=== PATIENT | male | born 1980 | race Two or more races ===

== ENCOUNTER 2025-04-26 18:33 | Emergency (ER) | payer MEDICARE, MEDICAID, SELFPAY ==
[2025-04-26 20:10] VITALS: BP 128/75; PULSE 76; RESP 18; TEMP 36.6; O2SAT 99
--- NOTE | 2025-04-26 20:26 | PD.EDFALL ---
ED Fall Injury RME/HPI General Chief Complaint: Fall Stated Complaint: Fall today, left shoulder, left elbow, right knee Time Seen by Provider: 04/26/25 20:26 Source: patient Arrival date/time: 04/26/25 18:33 Limitations: no limitations RME / HPI complaint: fall (Slipped on a floor at [employer] which had liquid on it) Onset (ago): day(s) (Earlier today) Fall from: standing Place fall occurred: other ([employer]) Loss of consciousness: none Location of injury - extremities: Left: shoulder and elbow and Right: knee Severity: moderate Severity scale (1-10): 5 Quality: dull Associated symptoms (after fall): denies Related Data Previous Rx's ?Medication ?Instructions ?Recorded Indomethacin * (INDOCIN *) 75 mg PO BID ##30 01/04/17 ibuprofen 800 mg tablet 800 mg PO TID PRN pain #30 tabs 09/08/22 methocarbamol 750 mg tablet 750 mg PO TID PRN pain #30 tabs 12/02/23 naproxen 500 mg tablet 500 mg PO BID PRN pain #30 tabs 12/02/23 cyclobenzaprine 10 mg tablet 10 mg PO TID #20 tabs 04/26/25 ibuprofen 800 mg tablet 800 mg PO TID PRN pain #30 tabs 04/26/25 Allergies Allergy/AdvReac Type Severity Reaction Status Date / Time NKA* Allergy Uncoded 04/26/25 18:36 Past Medical History Past Medical History Comments PMH COMMENT: No apparent significant past medical history ED Exam Narrative Physical exam: Left shoulder is tender to palpation posterior aspect just above the scapula. Patient retains full range of motion of the upper extremities. The upper extremities are symmetrical when compared to each other. There is no apparent neurofocal deficit. Patient also retains full range of motion at the C-spine. And there is no apparent neurofocal deficit present here. Patient is also able to flex the right knee to endrange as well as extension. Patient ambulates without assistance. Neurovascular is intact. General Limitations: Present no limitations Head Head exam: Present atraumatic and normocephalic Eye Eye exam: Present normal appearance ENT ENT exam: Present normal exam Neck Neck exam: Present normal inspection and full ROM Chest Chest inspection: Present normal inspection Extremities Exam Extremities exam: Present normal inspection, full ROM and tenderness (Posterior aspect of the left shoulder. Generalized pain to the right lower extremity at the thigh) Back Exam Back exam: Present normal inspection and full ROM Neurological Exam Neurological exam: Present alert and oriented X3 Psychiatric Psychiatric exam: Present normal affect Skin Skin exam: Present warm Course Course Course Narrative: Patient is requesting ibuprofen 800 mg for pain relief. Patient refuses or does not want x-rays of the left upper extremity at the shoulder and he does not want the right knee to be x-rayed. Quality Measures none (na) Orders NA Vital Signs Vital signs: Vital Signs Temperature 97.9 F 04/26/25 20:10 Pulse Rate 76 04/26/25 20:10 Respiratory Rate 18 04/26/25 20:10 Blood Pressure 128/75 04/26/25 20:10 Pulse Oximetry (%) 99 04/26/25 20:10 Oxygen Delivery Method Room Air 04/26/25 20:10 Pulse ox room air 99% Fall MDM Narrative MDM Narrative:: Patient will be discharged with a prescription for ibuprofen 800 mg as well as Flexeril. He will be discharged with instructions to follow-up with primary care physician within 1 week. Patient data External records reviewed:: Other (specify) (NA) Clinical information provided by:: patient Social determinants that could affect healthcare access:: none Patient has the following chronic illnesses:: NA How is presenting disease/condition affected by chronic disease/condition?: no chronic disease Evaluation data The following diagnostics were reviewed and interpreted by me:: other (specify) (NA) Lab and/or radiology exams considered but not ordered:: NA Interpretation Summary: NA Medications / Prescriptions Medications or Prescriptions considered but not ordered:: NA Medication administrations:: NA Consultations Consultation(s) initiated? (list below): No Diagnosis Fall Differential Diagnosis: dislocation of shoulder region, fracture of wrist, compression fracture and concussion with loss of consciousness Most likely diagnosis given after review of the tests above:: NA Admission Indicated Admission indicated?: not indicated Explain why admission is indicated or not indicated:: NA Admission Request Was there a request for admission?: No Disposition Plan Disposition Plan: Discharge Discharge Attestation Discharge Attestation: The patient and all family members were given an opportunity to ask questions and understood the discharge instructions. Discharge instructions specifically effects, indications for sooner follow up or return to the emergency department, and the expected course of current diagnosis. Patient condition: Stable Discharge Plan Plan Patient Disposition: HOME (Self Care) Discharge Disposition comment: Discharge no apparent distress Patient condition on transfer: Stable Prescriptions/Referrals Prescriptions/Med Rec: New cyclobenzaprine 10 mg tablet 10 mg PO TID Qty: 20 0RF ibuprofen 800 mg tablet 800 mg PO TID PRN (Reason: pain) Qty: 30 0RF No Action Indomethacin * (INDOCIN *) 75 MG CAPSULE.SA 75 mg PO BID Qty: 30 0RF ibuprofen 800 mg tablet 800 mg PO TID PRN (Reason: pain) Qty: 30 0RF methocarbamol 750 mg tablet 750 mg PO TID PRN (Reason: pain) Qty: 30 0RF naproxen 500 mg tablet 500 mg PO BID PRN (Reason: pain) Qty: 30 0RF Problem List Clinical Impression: Contusion of left shoulder, Contusion of knee, left Patient/Caregiver Discharge Instructions Discharge Activity: activity as tolerated Education Materials: Bone Contusion Print Language: Bruneian Stand Alone Forms: Zayda Award Info., Patient Portal Info Letter PA/MILLINER HELPER Supervising Physician PA/MILLINER HELPER Supervising Physician: AUDREY
== END 2025-04-26 22:45 | disposition home or self-care (01) ==
LOC: SERX 21:00
PROVIDERS: Emergency Provider Emergency Medicine
DX: S40.012A Contusion of left shoulder, initial encounter (principal); S80.02XA Contusion of left knee, initial encounter; S59.902A Unspecified injury of left elbow, initial encounter; W01.0XXA Fall on same level from slipping, tripping and stumbling without subsequent striking against object, initial encounter; Y92.512 Supermarket, store or market as the place of occurrence of the external cause
CPT/HCPCS: 99281

== ENCOUNTER 2025-05-02 21:25 | Emergency (ER) | payer MEDICARE, MEDICAID, SELFPAY ==
[2025-05-02 21:27] VITALS: BMI 29.1
[2025-05-02 22:00] VITALS: BP 139/82; PULSE 79; RESP 18; TEMP 36.8; O2SAT 98
--- NOTE | 2025-05-02 22:10 | XR_ITS ---
EXAMINATION: Thoracic spine 3 views TECHNIQUE: AP lateral: Lateral upper dorsal spine 3 views INDICATIONS: Patient fell last week with injury to the back, back pain. FINDINGS: No acute thoracic fracture or visible Mild diffuse thoracic disc narrowing No cortical bone destruction IMPRESSION: No acute thoracic fracture noted
--- NOTE | 2025-05-02 22:10 | EDNOTE_ITS ---
ED Back Injury Pain RME/HPI General Chief Complaint: Back Pain/Injury Stated Complaint: UPPER BACK PAIN Time Seen by Provider: 05/02/25 21:44 Source: patient, RN notes reviewed and old records reviewed Arrival date/time: 05/02/25 21:25 Mode of arrival: ambulatory Limitations: no limitations RME / HPI RME / HPI Narrative: 44yom presents to ED for back pain s/p injury 6 days ago. Patient slipped on some water and fell backwards onto his back. He was evaluated at time of injury but no imaging was completed. Patient now requesting xrays. No sob, cp, n/v, LE weakness, numbness/tingling or bowel/bladder incontinence reported. Patient has taken ibuprofen and flexeril with mild relief. Related Data Previous Rx's ?Medication ?Instructions ?Recorded Indomethacin * (INDOCIN *) 75 mg PO BID ##30 01/04/17 ibuprofen 800 mg tablet 800 mg PO TID PRN pain #30 t abs 09/08/22 methocarbamol 750 mg tablet 750 mg PO TID PRN pain #30 tabs 12/02/23 naproxen 500 mg tablet 500 mg PO BID PRN pain #30 t abs 12/02/23 cyclobenzaprine 10 mg tablet 10 mg PO TID #20 tabs 03/11 ibuprofen 800 mg tablet 800 mg PO TID PRN pain #30 t abs 04/26/25 Allergies Allergy/AdvReac Type Severity Reaction Status Date / Time No Known Allergies Allergy Verified 05/02/25 21:26 Review of Systems Review of Systems Systems Reviewed: All systems reviewed, normal except as documented Musculoskeletal Musculoskeletal: Reports back pain, Denies limited range of motion, Denies numbness and Denies tingling Neurologic Neurologic: Denies localized weakness, Denies numbness and Denies tingling Past Medical History Surgical History SURGICAL: Positive of Back Surgery Social History SMOKING STATUS: Never smoker SUBSTANCE USE: does not use ALCOHOL: Never Past Medical History Comments PMH COMMENT: denies pmhx ED Exam General Limitations: Present no limitations General appearance: Present alert and in no apparent distress Head Head exam: Present atraumatic and normocephalic Eye Eye exam: Present normal appearance, PERRL and EOMI ENT ENT exam: Present normal exam and mucous membranes moist Neck Neck exam: Present normal inspection and full ROM; Absent tenderness Chest Chest inspection: Present normal inspection and symmetric chest wall rise Respiratory Respiratory exam: Present normal lung sounds bilaterally; Absent respiratory distress Cardiovascular Cardiovascular exam: Present regular rate and normal rhythm Extremities Exam Extremities exam: Present normal inspection and full ROM; Absent tenderness Back Exam Back exam: Present full ROM; Absent muscle spasm, paraspinal tenderness or vertebral tenderness Neurological Exam Neurological exam: Present alert, oriented X3 and normal gait; Absent motor sensory deficit (No saddle anesthesia) Psychiatric Psychiatric exam: Present normal affect and normal mood Skin Skin exam: Present warm, dry, intact and normal color Course Quality Measures none Orders Category Date Time Status XR cervical spine 2-3V Stat Exams 05/02/25 22:10 Completed XR thoracic spine 3V Stat Exams 05/02/25 22:10 Completed Vital Signs Vital signs: Vital Signs Temperature 98.2 F 05/02/25 22:00 Pulse Rate 79 05/02/25 22:00 Respiratory Rate 18 05/02/25 22:00 Blood Pressure 139/82 H 05/02/25 22:00 Pulse Oximetry (%) 98 05/02/25 22:00 Oxygen Delivery Method Room Air 05/02/25 22:00 Back Pain / Injury MDM Narrative MDM Narrative:: 44yom presents to ED for back pain s/p injury 6 days ago. Patient slipped on some water and fell backwards onto his back. He was evaluated at time of injury but no imaging was completed. Patient now requesting xrays. No sob, cp, n/v, LE weakness, numbness/tingling or bowel/bladder incontinence reported. Patient has taken ibuprofen and flexeril with mild relief. X-rays negative. Patient is neurologically intact, able to ambulate without difficulty. Encouraged rest, Motrin/Tylenol, muscle relaxer, ice/heat application prn. Stable for discharge, RTED precautions given. Patient data External records reviewed:: [facility] previous records (04/26/25 ED visit for left knee contusion) Clinical information provided by:: patient Social determinants that could affect healthcare access:: none Patient has the following chronic illnesses:: None How is presenting disease/condition affected by chronic disease/condition?: no chronic disease Evaluation data The following diagnostics were reviewed and interpreted by me:: radiology exam(s) Lab and/or radiology exams considered but not ordered:: None Interpretation Summary: Thoracic x-rays: No fracture per my read Medications / Prescriptions Medications or Prescriptions considered but not ordered:: Ibuprofen: patient took at home Medication administrations:: na Consultations Consultation(s) initiated? (list below): No Diagnosis Differential diagnosis back pain/injury: other (Fracture, sprain, strain, MSK pain) Most likely diagnosis given after review of the tests above:: Back pain, fall Admission Indicated Admission indicated?: not indicated Admission Request Was there a request for admission?: No Disposition Plan Disposition Plan: Discharge Discharge Attestation Discharge Attestation: The patient and all family members were given an opportunity to ask questions and understood the discharge instructions. Discharge instructions specifically effects, indications for sooner follow up or return to the emergency department, and the expected course of current diagnosis. Patient condition: Stable Discharge Plan Plan Patient Disposition: HOME (Self Care) Patient condition on transfer: Stable Prescriptions/Referrals Prescriptions/Med Rec: No Action Indomethacin * (INDOCIN *) 75 MG CAPSULE.SA 75 mg PO BID Qty: 30 0RF ibuprofen 800 mg tablet 800 mg PO TID PRN (Reason: pain) Qty: 30 0RF methocarbamol 750 mg tablet 750 mg PO TID PRN (Reason: pain) Qty: 30 0RF naproxen 500 mg tablet 500 mg PO BID PRN (Reason: pain) Qty: 30 0RF cyclobenzaprine 10 mg tablet 10 mg PO TID Qty: 20 0RF ibuprofen 800 mg tablet 800 mg PO TID PRN (Reason: pain) Qty: 30 0RF Referrals: Gregorio Singleton MD [Primary Care Provider, Family Practice] - In 1 week Problem List Clinical Impression: Back pain, Fall Patient/Caregiver Discharge Instructions Education Materials: ED Back Pain (Acute or Chronic) Print Language: Luxembourgish Stand Alone Forms: Zayda Award Info., Patient Portal Info Letter PA/DATA ANALYST REPORT WRITER Supervising Physician PA/DATA ANALYST REPORT WRITER Supervising Physician: Ivania
--- NOTE | 2025-05-02 22:10 | XR_ITS ---
EXAMINATION: Cervical spine 3 views TECHNIQUE: AP, lateral, coned AP odontoid cervical spine 3 views Date and time: May 02, 2025, 10:24 p.m. INDICATIONS: Patient fell 1 week ago with injury to neck, neck pain. FINDINGS: Satisfactory alignment cervical vertebral bodies. No cervical fracture. Intact odontoid IMPRESSION: No acute cervical fracture
== END 2025-05-02 23:17 | disposition home or self-care (01) ==
PROVIDERS: Emergency Provider Emergency Medicine; PCP Family Medicine
DX: S29.9XXA Unspecified injury of thorax, initial encounter (principal); S19.9XXA Unspecified injury of neck, initial encounter; W01.0XXA Fall on same level from slipping, tripping and stumbling without subsequent striking against object, initial encounter
CPT/HCPCS: 72040; 72072; 99282